=== PATIENT | male | born 1960 | race Caucasian/White ===

== ENCOUNTER 2017-07-08 19:59 | Emergency (ER) | payer OTHER ==
[~2017-07-08] VITALS: Ht 175.3 cm; Wt 74.8 kg
[~2017-07-08 19:59] MED LIST: ASPI-605 PO
--- NOTE | 2017-07-08 20:00 | NUR ---
PT BIBRA FROM HOME TO ER BED 10. PER REPORT, PT C/O HEART PALPITATION. UPON PARAMEDICS ARRIVAL REPORT STATES SVT. CONVERTED BY RIMMA ALEXANDER. PT DENIES PAIN GIS SPECIALIST. AAOX3. AWAITINGMD EVAL.
--- NOTE | 2017-07-08 20:18 | NUR ---
DR VIERA AT BEDSIDE FOR EVAL.
--- NOTE | 2017-07-08 20:32 | NUR ---
RAILROAD AUDITOR AT BEDSIDE FOR BLOOD DRAW.
--- NOTE | 2017-07-08 20:38 | NUR ---
RADIOLOGY AT BEDSIDE FOR CHEST XRAY.
[2017-07-08 20:40] LABS: BASOPHILS % (AUTO) 0.3 % (0.0-2.0); EOSINOPHILS # (AUTO) 0.1 /CMM (0.0-0.7); EOSINOPHILS % (AUTO) 2.5 % (0.0-6.0); HEMATOCRIT 49 % (39-51); HEMOGLOBIN 16.4 g/dL (13.5-17.5); LYMPHOCYTES # (AUTO) 1.1 /CMM (0.8-4.8); MEAN CORPUSCULAR HEMOGLOBIN 30 PG (26.0-33.0); MEAN CORPUSCULAR HGB CONC 33 g/dl (31.0-36.0); MEAN CORPUSCULAR VOLUME 91 fL (80-96); MONOCYTES # (AUTO) 0.4 /CMM (0.1-1.30); MONOCYTES % (AUTO) 7.4 % (2.0-12.0); NEUTROPHILS # (AUTO) 3.4 /CMM (1.8-8.9); NEUTROPHILS % (AUTO) 68.8 % (43.0-81.0); PLATELET COUNT (AUTO) 176 /CMM (150-450); RDW COEFFICIENT OF VARIATION 13.8 (11.5-15.0); RED BLOOD CELL COUNT(AUTO) 5.42 MIL/uL (4.5-6.0)
[2017-07-08 20:48] LABS: CALCIUM, SERUM 9.2 mg/dL (8.5-10.1); POTASSIUM 3.6 mmol/L (3.5-5.1)
[2017-07-08 21:15] LABS: INR 0.94 (0.87-1.13)
--- NOTE | 2017-07-08 21:50 | NUR ---
Patient discharged to home in stable condition. Written and verbal after care instructions given. Patient verbalizes understanding of instruction.IV removed. Catheter intact and site benign. Pressure and 4x4 applied to site. No bleeding noted.
[2017-07-08 21:52] VITALS: BP 152/89
== END 2017-07-08 21:53 | disposition home or self-care (01) ==
LOC: ER 20:00
DX: I47.1 Supraventricular tachycardia (principal); R79.1 Abnormal coagulation profile; I10 Essential (primary) hypertension; K21.9 Gastro-esophageal reflux disease without esophagitis; Z79.82 Long term (current) use of aspirin
CPT/HCPCS: 36415; 71010-TC; 80048-TC; 85025-TC; 85730-TC; A4606; Z7610

== ENCOUNTER 2024-01-10 16:06 | Emergency (ER) | payer OTHER ==
[~2024-01-10] VITALS: Ht 170.2 cm; Wt 70.8 kg
[2024-01-10] MEDS ORDERED: DILTIAZEM HCL 50 MG IV ONE (16:33)
[2024-01-10 16:36] LABS: BASOPHILS % (AUTO) 0.6 % (0.0-2.0); EOSINOPHILS # (AUTO) 0.2 K/uL (0.0-0.7); EOSINOPHILS % (AUTO) 3.2 % (0.0-6.0); HEMATOCRIT 42 % (39-51); HEMOGLOBIN 14.1 g/dL (13.5-17.5); LYMPHOCYTES # (AUTO) 1.6 K/uL (0.8-4.8); LYMPHOCYTES % (AUTO) 26.8 % (20.0-44.0); MEAN CORPUSCULAR HEMOGLOBIN 30 PG (26.0-33.0); MEAN CORPUSCULAR HGB CONC 33 g/dl (31.0-36.0); MEAN CORPUSCULAR VOLUME 89 fL (80-96); MONOCYTES # (AUTO) 0.3 K/uL (0.1-1.30); MONOCYTES % (AUTO) 4.7 % (2.0-12.0); NEUTROPHILS # (AUTO) 3.8 K/uL (1.8-8.9); NEUTROPHILS % (AUTO) 64.7 % (43.0-81.0); PLATELET COUNT (AUTO) 209 K/uL (150-450); RED BLOOD CELL COUNT(AUTO) 4.75 MIL/uL (4.5-6.0); RED CELL DISTRIBUTION WIDTH 12.8 % (11.5-15.0); WHITE BLOOD COUNT (AUTO) 5.8 K/uL (4.3-11.0)
[2024-01-10] MEDS: DILTIAZEM HCL 50 MG IV IV ONE (16:37)
[2024-01-10 16:47] LABS: CALCIUM, SERUM 8.7 mg/dL (8.5-10.1); CARBON DIOXIDE 26 mmol/L (21-32); CHLORIDE 99 mmol/L (98-107); CREATININE 0.9 mg/dL (0.6-1.3); GLUCOSE 113 mg/dL (74-106); SODIUM SERUM 132 mmol/L (136-145); UREA NITROGEN, BLOOD 14 mg/dL (7-18)
[2024-01-10 17:00] LABS: ALANINE AMINOTRANSFERASE 28 U/L (12-78); ALBUMIN 3.6 g/dL (3.4-5.0); ALKALINE PHOSPHATASE 87 U/L (46-116); ASPARTATE AMINOTRANSFERASE 17 U/L (15-37); BILIRUBIN,DIRECT 0.1 mg/dL (0.0-0.2); BILIRUBIN,TOTAL 0.5 mg/dL (0.2-1.0); TOTAL PROTEIN, SERUM 6.5 g/dL (6.4-8.2)
[2024-01-10] MEDS ORDERED: ASPIRIN 325 MG TABLET ONE (18:03)
[2024-01-10] MEDS: ASPIRIN 325 MG TABLET PO ONE (18:06)
[2024-01-10] MEDS ORDERED: TAMS-12 PO (18:12)
[2024-01-10] MEDS ORDERED: OMEG1CAP PO (18:12)
[2024-01-10] MEDS ORDERED: METF-440 PO (18:12)
[2024-01-10] MEDS ORDERED: PROP10TA68 PO (18:12)
[2024-01-10] MEDS ORDERED: LISI2.5T2 PO (18:12)
[2024-01-10] MEDS ORDERED: METO25TA4 PO (18:12)
[2024-01-10] MEDS ORDERED: DEXL60CA3 PO (18:12)
[2024-01-10] MEDS ORDERED: GABA-532 PO (18:12)
[2024-01-10] MEDS ORDERED: MIRT-91 PO (18:12)
[2024-01-10] MEDS ORDERED: ERGO500093 PO (18:12)
[2024-01-10] MEDS ORDERED: ATOR10TA PO (18:12)
[2024-01-10] MEDS ORDERED: ACETAMINOPHEN 325 MG TABLET PO PRN (20:30)
[2024-01-10] MEDS ORDERED: ONDANSETRON HCL/PF 4 MG/2 ML VIAL IVP PRN (20:30)
[2024-01-10] MEDS ORDERED: GABAPENTIN 100 MG CAPSULE PO PRN (20:30)
[2024-01-10] MEDS ORDERED: INSULIN REGULAR, HUMAN 100 UNIT/ML 3 ML VIAL SQ PRN (20:30)
[2024-01-10] MEDS ORDERED: DEXTROSE 50%-WATER 50 ML DISP.SYRIN IV PRN (20:30)
[2024-01-10] MEDS ORDERED: MAGNESIUM HYDROXIDE 30 ML UDC PO PRN (20:30)
[2024-01-10] MEDS ORDERED: IV NS 0.9% 1,000 ML IV PRN (20:30)
[2024-01-10] MEDS ORDERED: MAG HYDROX/AL HYDROX/SIMETH 30 ML UDC PO PRN (20:30)
[2024-01-10 20:54] VITALS: BP 127/74; TEMP 97.6; O2SAT 98
[2024-01-10] MEDS ORDERED: ENOXAPARIN SODIUM 40 MG/0.4 ML DISP.SYRIN SQ SCH (21:00)
[2024-01-10] MEDS ORDERED: BLOOD SUGAR DIAGNOSTIC 1 EACH STRIP IN SCH (22:00)
[2024-01-11] MEDS ORDERED: METOPROLOL SUCCINATE 25 MG TAB.SR.24H PO SCH (09:00)
[2024-01-11] MEDS ORDERED: MIRTAZAPINE 15 MG TABLET PO SCH (09:00)
[2024-01-11] MEDS ORDERED: Medication Not On Formulary EA (Omega-3 Fatty Acids/Fish Oil (Fish Oil 1,000 Mg Capsule) PO SCH (09:00)
[2024-01-11] MEDS ORDERED: PANTOPRAZOLE 40 MG TABLET.DR PO SCH (09:00)
[2024-01-11] MEDS ORDERED: ASPIRIN EC 81 MG TABLET.DR PO SCH (09:00)
[2024-01-11] MEDS ORDERED: TAMSULOSIN 0.4 MG CAP.SR.24H PO SCH (09:00)
[2024-01-11] MEDS ORDERED: ATORVASTATIN 10 MG TABLET PO SCH (09:00)
[2024-01-11] MEDS ORDERED: LISINOPRIL (5MG) 5 MG TABLET PO SCH (09:00)
[2024-01-16] MEDS ORDERED: ERGOCALCIFEROL (VITAMIN D 2) 50,000 UNIT CAPSULE PO SCH (09:00)
== END 2024-01-10 20:55 | disposition left against medical advice (07) ==
LOC: ER 16:08 → TELE 20:09 → UNDOADMIN 20:09
DX: R07.89 Other chest pain (principal); R00.0 Tachycardia, unspecified; Z88.8 Allergy status to other drugs, medicaments and biological substances; Z79.899 Other long term (current) drug therapy
CPT/HCPCS: 99285; 96374; 71045; 93005 ×3; 85025; 80048; 80076; 36415; 84484; J3490; J1815; G0378